=== PATIENT | female | born 1980 | race Asian ===

== ENCOUNTER 2019-12-16 03:47 | Emergency (ER) | payer OTHER ==
[2019-12-16 04:16] VITALS: TEMP 98.5; BMI 23.3
--- NOTE | 2019-12-16 04:41 | PDOC ---
Attending Attestation - Resident Resident Name: Shukri Guzmán - ED Attending Attestation I have performed the following: I have examined & evaluated the patient, The case was reviewed & discussed with the resident, I agree w/resident's findings & plan - HPI HPI: 12/16/19 06:33 Pt comes with flank pain and a hx of kidney stones - Physicial Exam PE: 12/16/19 06:33 Agree with resident exam - Medical Decision Making 12/16/19 06:33 Normal exam Pt has 3mm stone with minimal hydronephrosis Pt is stable to go home. 12/16/19 06:35 Patient Name: VINCENT ABAD THIS IS A PRELIMINARY REPORT FROM IMAGING PSYCHOLOGY DEPARTMENT CHAIR DATE OF SERVICE: 2019-12-16 05:38:16 IMAGES: [id number] EXAM: CT abdomen and pelvis without contrast HISTORY: Right flank pain COMPARISON: None. FINDINGS: Lung bases are clear. The visualized cardiac chambers are normal size and configuration is mild right hydronephrosis due to a 3 mm proximal to mid right ureteral stone. No other stones are identified. Normal liver, gallbladder, pancreas, spleen, adrenal glands and left kidney. The stomach and abdominal small and large bowel are normal. There is no aortic aneurysm. There is no significant retroperitoneal lymphadenopathy. The pelvic small and large bowel are normal. Appendix is normal. The uterus and adnexal structures are notable only for an IUD. Urinary bladder is unremarkable. There is no pelvic free fluid. No discrete pelvic lymphadenopathy is identified. IMPRESSION: Mild right hydronephrosis due to a 3 mm proximal to mid right ureteral stone. Discharge - Discharge Information Problems reviewed: Yes Clinical Impression/Diagnosis: Right nephrolithiasis Condition: Fair Disposition: HOME - Additional Discharge Information Prescriptions: Naproxen [Naprosyn -] 500 mg PO BID PRN 7 Days #14 tablet PRN Reason: Pain - Follow up/Referral Referrals: Robbin Denson MD [Staff Physician] - - Patient Discharge Instructions Patient Printed Discharge Instructions: DI for Kidney Stones, Naproxen Additional Instructions: You were seen today for two days of right flank pain. The CT scan showed a right sided kidney stone. This is likely the cause of your pain. Your blood work and urine tests were normal. You need to follow up with a urologist in clinic. It would be best for your to return to the kidney specialist you saw previously in the [place]. I have also entered a referral for your to see Dr. Denson, who is associated with this hospital system. You will need to call to make an appointment on the next . The number is included in this packet. Todays results are also included in this packet. Take it with you so your doctor can review them. Continue to stay well hydrated. I have sent a prescription for a pain medication called Naproxen to your pharmacy. Take as directed on the package insert. Do not exceed the recommended dosage. Do not take with other NSAID medications such as Ibuprofen, Advil, or Motrin. Start with taking the Naproxen every 12 hours. If the pain becomes worse then add Tylenol (Acetaminophen) between doses of Naproxen. An example schedule is as follows: 9:00 am Naproxen 12:00 pm 1000mg Tylenol 6:00 pm 1000mg Tylenol 9:00 pm Naproxen 12:00 am 1000mg Tylenol etc. Return to the emergency room for new or worsening symptoms. Watch for fever, chills, and/or decreased urination as this could be a sign of a more serious condition. Print Language: SOUTH AFRICAN - Post Discharge Activity
[2019-12-16] MEDS ORDERED: LACTATED RINGERS SOLUTION 1000 ML INFUS.BAG IV ONE (04:47)
[2019-12-16] MEDS ORDERED: ACETAMINOPHEN 325 MG TABLET (FP) PO ONE (04:47)
--- NOTE | 2019-12-16 04:50 | PDOC ---
History of Present Illness - General Chief Complaint: Pain, Acute Stated Complaint: FLANK PAIN Time Seen by Provider: 12/16/19 04:32 History Source: Patient, Spouse ( present at bedside), Pt declined [employer] Commanding Officer Exam Limitations: Language Barrier (Pt is Vietnamese Speaking Only) - History of Present Illness Initial Comments: 39 y/o female presenting to [facility] ER complaining of two days of worsening right flank pain. Started posteriorly and has migrated anteriorly to RLQ vs R pelvis. Made worse with voiding. Single episode of emesis this morning. Denies hematuria, vaginal discharge, diarrea, fevers, chills, or trauma. In usual state of health previously. H/o similar pain last year with nephrolithiasis. Unsuccessfully attempted relief this evening with a dose of Tamsulosin. LMP completed last week. Reportedly normal. Pt is Vietnamese speaking only. Accompanied by her , who speaks Japanese. Conversation initiated with [employer] Commanding Officer # [id number]. Pt requested her provide translation. Did not wish to be examined in private. Sick Contacts: No Recent Travel: No Past History - Medical History Allergies/Adverse Reactions: Allergies Allergy/AdvReac Type Severity Reaction Status Date / Time No Known Allergies Allergy Verified 12/16/19 04:16 Home Medications: Ambulatory Orders Naproxen [Naprosyn -] 500 mg PO BID PRN 7 Days #14 tablet 12/16/19 Asthma: No Cancer: No Cardiac Disorders: No Diabetes: No HTN: No Kidney Stones: Yes Seizures: No Thyroid Disease: No - Surgical History Abdominal Surgery: No Other Surgical History: Denies past surgical history. - Reproductive History (#): 6 Para: 5 Cervical CA: No Dysfunctional Uterine Bleeding: No Ectopic : No Endometrial CA: No Polycystic Ovaries: No Therapeutic (s) & number: No Tubal Ligation: No - Psycho-Social/Smoking History Smoking History: Never smoked Have you smoked in the past 12 months: No Information on smoking cessation initiated: No - Substance Abuse Hx (Audit-C & DAST Scrn) How often the patient has a drink containing alcohol: Never Score: In Men: 4 or > Positive; In Women: 3 or > Positive: 0 Screen Result (Pos requires Nsg. Audit-10AR): Negative In the last yr the pt used illegal drug/Rx for NonMed reason: No Score: Yes response is considered Positive: 0 Screen Result (Positive result requires Nsg. DAST-10): Negative Review of Systems - Review of Systems Able to Perform ROS?: Yes Comments:: 10 point review of systems completed. All systems negative except as noted above. *Physical Exam - Vital Signs Last Vital Signs Temp Pulse Resp BP Pulse Ox 98.5 F 63 18 102/76 99 12/16/19 03:50 12/16/19 03:50 12/16/19 03:50 12/16/19 03:50 12/16/19 03:50 - Physical Exam Vital signs and nursing notes reviewed. Constitutional- Well-developed, well-nourished adult female in no acute distress or obvious discomfort. Found semi-fowlers on hospital stretcher. Head- Normocephalic. No obvious external signs of trauma. Eyes- Sclerae white. Neck- Supple, trachea is midline. Cardiovascular / Chest- Regular rate. Peripheral pulses- radial pulses full. Respiratory- Breathing unlabored. Speaking in multi-word responses without pausing. Equal chest rise and fall. No respiratory distress. Gastrointestinal- Mild abdominal discomfort in RLQ without rebound or guarding. Mild tenderness to R flank with grimace. Globally, abdomen is soft and nondistended. No overlying skin changes or signs of trauma.No pulsatile masses. Neuro- Alert and oriented x4. Moving all four extremities spontaneously. No facial asymmetry. No slurred speech. Skin- Warm, dry, and intact. No bruising, rashes, or other lesions. Back- No Midline thoracic or lumbar spinal or paraspinal tenderness. No overlying skin changes. - No R or L CVA tenderness. Psych- Affect- appropriate. Mood- normal. Speech was non-labored, non- pressured. ED Treatment Course - LABORATORY CBC & Chemistry Diagram: 12/16/19 04:40 12/16/19 04:40 - RADIOLOGY Radiograph Interpretation: Spiral Abdominal CT: THIS IS A PRELIMINARY REPORT FROM IMAGING HOSPICE ADMITTING CLERK DATE OF SERVICE: 2019-12-16 05:38:16 IMAGES: [id number] EXAM: CT abdomen and pelvis without contrast HISTORY: Right flank pain COMPARISON: None. FINDINGS: Lung bases are clear. The visualized cardiac chambers are normal size and configuration is mild right hydronephrosis due to a 3 mm proximal to mid right u reteral stone. No other stones are identified. Normal liver, gallbladder, pancreas, spleen, adrenal glands and left kidney. The stomach and abdominal small and large bowel are normal. There is no aortic aneurysm. There is no significant retroperitoneal lymphadenopathy. The pelvic small and large bowel are normal. Appendix is normal. The uterus and adnexal structures are notable only for an IUD. Urinary bladder is unremarkable. There is no pelvic free fluid. No discrete pelvic lymphadenopathy is identified. IMPRESSION: Mild right hydronephrosis due to a 3 mm proximal to mid right ureteral stone. One or more of the following dose reduction techniques were used: automated exposure control, adjustment of the mA and/or kV according to patient size, use of iterative reconstructive technique. THIS DOCUMENT HAS BEEN ELECTRONICALLY SIGNED Bhavin Worley MD 12/16/2019 06:16 EST Medical Decision Making - Medical Decision Making 39 y/o female presenting with two days of worsening, migratory R flank pain. Afebrile. Triage vitals unremarkable for hypotension or tachycardia. Normoxic on room air. Physical exam as described above. No acute abdominal signs. DDx includes nephrolithiasis vs pyelonephritis (low suspicion) vs appendicitis (low suspicion) vs ectopic (low suspicion). Ordered Tylenol and LR IVFB for symptom relief. Reviewed laboratory data. No clinically significant derangement noted. Normal renal function. UA remarkable for microscopic hematuria. Spiral CT remarkable for 3mm right nephrolithiasis with mild hydronephrosis. Pt reassessed. Reports pain has significantly improved with Tylenol. Ordered single dose of Toradol for further analgesia. Discussed physical exam findings, laboratory results, and CT findings with pt and pts . Answered all questions. Provided return precautions. Both exp ressed verbal understanding and agreement with plan to discharge home with outpatient follow up. Provided copies of todays results. Provided urology clinic referral. Prescribed short course of PRN Naproxen for pain relief. Instructed pt to not start taking this medication until 12 hours after receiving the Toradol. Case discussed with ED Attending Dr. Alma Delia Guzmán M.D., PGY3 Emergency Medicine Resident Discharge - Discharge Information Problems reviewed: Yes Clinical Impression/Diagnosis: Right nephrolithiasis Condition: Fair Disposition: HOME - Admission No - Additional Discharge Information Prescriptions: Naproxen [Naprosyn -] 500 mg PO BID PRN 7 Days #14 tablet PRN Reason: Pain - Follow up/Referral Referrals: Robbin Denson MD [Staff Physician] - - Patient Discharge Instructions Patient Printed Discharge Instructions: DI for Kidney Stones, Naproxen Additional Instructions: You were seen today for two days of right flank pain. The CT scan showed a right sided kidney stone. This is likely the cause of your pain. Your blood work and urine tests were normal. You need to follow up with a urologist in clinic. It would be best for your to return to the kidney specialist you saw previously in the [place]. I have also entered a referral for your to see Dr. Denson, who is associated with this hospital system. You will need to call to make an appointment on the next business day. The number is included in this packet. Todays results are also included in this packet. Take it with you so your doctor can review them. Continue to stay well hydrated. I have sent a prescription for a pain medication called Naproxen to your pharmacy. Take as directed on the package insert. Do not exceed the recommended dosage. Do not take with other NSAID medications such as Ibuprofen, Advil, or Motrin. Start with taking the Naproxen every 12 hours. If the pain becomes worse then add Tylenol (Acetaminophen) between doses of Naproxen. An example schedule is as follows: 9:00 am Naproxen 12:00 pm 1000mg Tylenol 6:00 pm 1000mg Tylenol 9:00 pm Naproxen 12:00 am 1000mg Tylenol etc. Return to the emergency room for new or worsening symptoms. Watch for fever, chills, and/or decreased urination as this could be a sign of a more serious condition. Print Language: CHINESE - Post Discharge Activity
[2019-12-16] MEDS ORDERED: ACETAMINOPHEN 325 MG TABLET (FP) ONE (04:52)
[2019-12-16 05:07] LABS: BASO % 0.8 % (0-2.0); EOS % 1.8 % (0-4.5); HEMATOCRIT 38.3 % (32.4-45.2); HEMOGLOBIN 12.6 GM/dL (10.7-15.3); LYMPH % 44.7 % (8-40); MCH 26.4 pg (25.7-33.7); MCHC 32.8 g/dl (32.0-36.0); MEAN CELL VOLUME 80.6 fl (80-96); MEAN PLT VOLUME 9.7 fl (7.5-11.1); MONO % 7.4 % (3.8-10.2); NEUT % 45.3 % (42.8-82.8); PLATELET COUNT 158 K/MM3 (134-434); RBC 4.75 M/mm3 (3.60-5.2); RDW 14.5 % (11.6-15.6); WHITE BLOOD COUNT 4.1 K/mm3 (4.0-10.0)
[2019-12-16 05:28] LABS: ALBUMIN 3.6 g/dl (3.4-5.0); BILIRUBIN,TOTAL 0.2 mg/dL (0.2-1); BLOOD UREA NITROGEN 12.4 mg/dL (7-18); CALCIUM 8.8 mg/dL (8.5-10.1); CREATININE 0.6 mg/dL (0.55-1.3); POTASSIUM 3.7 mmol/L (3.5-5.1); TOT PROT 6.8 g/dl (6.4-8.2)
[2019-12-16 05:52] LABS: EPI CELLS 30 /uL (0-25.1); HYALINE CASTS 0 /uL (0-3.1); PH,URINE 7.5 (5.0-8.0); URINE APPEARANCE CLEAR; URINE BACTERIA 408 /uL (0-1359); URINE BILIRUBIN NEGATIVE (NEGATIVE); URINE COLOR YELLOW; URINE GLUCOSE (UA) NEGATIVE (NEGATIVE); URINE KETONE NEGATIVE (NEGATIVE); URINE LEUK ESTERASE TRACE (NEGATIVE); URINE NITRITE NEGATIVE (NEGATIVE); URINE PROTEIN NEGATIVE (NEGATIVE); URINE UROBILINOGEN 0.2 mg/dL (0.2-1.0); URINE WBC 12 /uL (0-25.8)
[2019-12-16 06:24] VITALS: BP 110/63; PULSE 60
[2019-12-16] MEDS ORDERED: KETOROLAC TROMETHAMINE 15 MG/ML VIAL IVPUSH ONE (06:26)
[2019-12-16] MEDS ORDERED: KETOROLAC TROMETHAMINE 15 MG/ML VIAL ONE (06:31)
--- NOTE | 2019-12-16 09:53 | EKG ---
Test Reason : Blood Pressure : / mmHG Vent. Rate : 061 BPM Atrial Rate : 061 BPM P-R Int : 156 ms QRS Dur : 082 ms QT Int : 416 ms P-R-T Axes : 061 -05 004 degrees QTc Int : 418 ms NORMAL SINUS RHYTHM NORMAL ECG NO PREVIOUS ECGS AVAILABLE Confirmed by Mariano Smith ([id number]) on 12/16/2019 9:52:54 AM Referred By: Confirmed By:Mariano Smith
[2019-12-16 10:00] LABS: URINE RBC 772 /uL (0-23.9); YEAST NONE SEEN (NEGATIVE)
== END 2019-12-16 06:43 | disposition home or self-care (01) ==
LOC: JER 03:47
PROC: 3E0333Z Introduction of Anti-inflammatory into Peripheral Vein, Percutaneous Approach (ICD-10-PCS; principal; 2019-12-16)
DX: N20.0 Calculus of kidney (principal)
CPT/HCPCS: 36415; 74176-TC; 80053; 81003; 83690; 84703; 85025; 87086; 93005; 93010; 99285-25

== ENCOUNTER 2021-01-23 14:33 | Emergency (ER) | payer OTHER ==
[2021-01-23 15:08] VITALS: BP 118/74; PULSE 58; TEMP 98.4; BMI 25.0
[2021-01-23 15:47] LABS: BASO % 1.4 % (0-2.0); EOS % 2.1 % (0-4.5); HEMATOCRIT 39.6 % (32.4-45.2); HEMOGLOBIN 13.2 GM/dL (10.7-15.3); MCH 26.3 pg (25.7-33.7); MCHC 33.5 g/dl (32.0-36.0); MEAN CELL VOLUME 78.7 fl (80-96); MEAN PLT VOLUME 8.9 fl (7.5-11.1); NEUT % 32.5 % (42.8-82.8); PLATELET COUNT 202 10^3/uL (134-434); RBC 5.03 M/mm3 (3.60-5.2); WHITE BLOOD COUNT 3.6 K/mm3 (4.0-10.0)
[2021-01-23 15:57] LABS: EPI CELLS 33 /uL (0-25.1); HYALINE CASTS 1 /uL (0-3.1); URINE APPEARANCE CLEAR; URINE BACTERIA 72 /uL (0-1359); URINE BILIRUBIN NEGATIVE (NEGATIVE); URINE COLOR YELLOW; URINE GLUCOSE (UA) NEGATIVE (NEGATIVE); URINE KETONE TRACE (NEGATIVE); URINE LEUK ESTERASE TRACE (NEGATIVE); URINE NITRITE NEGATIVE (NEGATIVE); URINE PROTEIN NEGATIVE (NEGATIVE); URINE RBC 428 /uL (0-23.9); URINE UROBILINOGEN 0.2 mg/dL (0.2-1.0); URINE WBC 12 /uL (0-25.8)
[2021-01-23] MEDS ORDERED: ACETAMINOPHEN 500 MG TABLET (FP) PO ONE (16:02)
[2021-01-23] MEDS ORDERED: ACETAMINOPHEN 500 MG TABLET (FP) ONE (16:03)
[2021-01-23 16:46] LABS: BILIRUBIN,TOTAL 0.4 mg/dL (0.2-1); BLOOD UREA NITROGEN 7.3 mg/dL (7-18); CALCIUM 8.8 mg/dL (8.5-10.1); CREATININE 0.5 mg/dL (0.55-1.3); TOT PROT 7.7 g/dl (6.4-8.2)
[2021-01-23 16:50] LABS: HCG,QUALITATIVE URINE Positive
== END 2021-01-23 20:17 | disposition home or self-care (01) ==
LOC: JER 14:33
DX: O26.851 Spotting complicating pregnancy, first trimester (principal); Z3A.01 Less than 8 weeks gestation of pregnancy
CPT/HCPCS: 36415; 76817-TC; 80053; 81003; 84702; 84703; 85025; 86850; 86900; 86901; 87086; 87491; 87591; 99284-25